=== PATIENT | male | born 1995 | race Two or more races ===

== ENCOUNTER 2023-06-10 17:44 | Inpatient (IN) | payer MEDICAID ==
[~2023-06-10] VITALS: Ht 162.6 cm; Wt 86.5 kg
[~2023-06-10 17:44] MED LIST: LAMO25TA5 PO; QUET200T31 PO; QUET300T91 PO; TRAZ-251 PO
[2023-06-10 19:51] LABS: BASOPHILS # (AUTO) 0.1 X10'3 (0-0.2); BASOPHILS % (AUTO) 0.6 % (0-1); EOSINOPHILS % (AUTO) 0.1 % (0-6); HEMATOCRIT 42.4 % (42.0-52.0); HEMOGLOBIN 14.5 g/dl (14.0-17.9); LYMPHOCYTES # (AUTO) 2.7 X10'3 (1.1-4.8); LYMPHOCYTES % (AUTO) 27.1 % (21-51); MEAN CORPUSCULAR HEMOGLOBIN 31.7 PG (27.0-31.0); MEAN CORPUSCULAR HGB CONC 34.2 g/dL (33.0-36.5); MEAN CORPUSCULAR VOLUME 92.6 FL (78-98); MEAN PLATELET VOLUME 8.7 FL (7.4-10.4); MONOCYTES # (AUTO) 0.6 X10'3 (0-0.9); NEUTROPHILS # (AUTO) 6.7 X10'3 (1.8-7.7); NEUTROPHILS % (AUTO) 66.2 % (42-75); PLATELET COUNT 307 X10'3 (140-440); RED BLOOD COUNT 4.58 X10'6 (4.70-6.10); RED CELL DISTRIBUTION WIDTH 12.9 % (11.5-14.5); WHITE BLOOD COUNT 10.2 X10'3 (4.5-11.0)
[2023-06-10 19:54] LABS: ALANINE AMINOTRANSFERASE 25 U/L (12-78); ALBUMIN/GLOBULIN RATIO 1.3 (1.1-1.5); ALKALINE PHOSPHATASE 75 IU/L (46-116); ANION GAP 9 (8-16); ASPARTATE AMINO TRANSFERASE 39 U/L (10-37); BILIRUBIN,TOTAL 0.5 MG/DL (0.1-1.0); BLOOD UREA NITROGEN 14 MG/DL (7-18); BUN/CREATININE RATIO 14.9 (10.0-20.0); CALCIUM 9.8 MG/DL (8.5-10.1); CHLORIDE 99 MMOL/L (99-107); CREATININE 0.94 MG/DL (0.60-1.10); GLUCOSE 108 MG/DL (70-104); SODIUM 138 MMOL/L (135-145); TOTAL CARBON DIOXIDE 30.1 MMOL/L (24-32); TOTAL PROTEIN 8.9 G/DL (6.4-8.2); eCRCL 118 ML/MIN; eGFR > 90 ML/MIN
[2023-06-10 20:07] LABS: ETHANOL < 10 MG/DL (<10)
[2023-06-10 20:10] LABS: URINE AMPHETAMINE SCREEN NEGATIVE (Neg); URINE BARBITUATE SCREEN NEGATIVE (Neg); URINE BENZODIAZEPINES SCREEN NEGATIVE (Neg); URINE CANNABINOID SCREEN NEGATIVE (Neg); URINE COCAINE SCREEN NEGATIVE (Neg); URINE METHADONE SCREEN NEGATIVE (Neg); URINE OPIATE SCREEN NEGATIVE (Neg); URINE PHENCYCLIDINE SCREEN NEGATIVE (Neg)
[2023-06-10 21:26] LABS: BILIRUBIN,URINE NEGATIVE (Neg); CLARITY,URINE CLEAR (Clear); COLOR,URINE YELLOW (Yellow); GLUCOSE, URINE NEGATIVE (Neg); KETONES,URINE NEGATIVE (Neg); LEUKOCYTE ESTERASE ,URINE NEGATIVE (Neg); NITRITES, URINE NEGATIVE (Neg); OCCULT BLOOD,URINE NEGATIVE (Neg); PROTEIN,URINE NEGATIVE (Neg); UROBILINOGEN,URINE 0.2 E.U/dL (0.2-1.0)
[2023-06-10] MEDS ORDERED: QUET-1 PO ×2 (21:26→21:28)
[2023-06-10] MEDS ORDERED: LAMO25TA72 PO (21:28)
--- NOTE | 2023-06-10 21:30 | NUR ---
Arrived to bed-25 from ED. Patient calm and cooperative. Sad affect noted. Reports Anxiety +SI, +HI, +AH & VH.
[2023-06-10 21:54] LABS: THYROID STIMULATING HORMONE 2.02 ulU/ml (0.34-4.50)
[2023-06-10 22:12] LABS: UA COLLECTION TYPE VOIDED
[2023-06-10] MEDS ORDERED: hydrOXYzine 25 MG tablet PO PRN (22:30)
[2023-06-10] MEDS ORDERED: LORazepam 1 MG tablet PO PRN (22:30)
--- NOTE | 2023-06-10 23:00 | NUR ---
Patient awake and asking for medication for anxiety. Administered Hydroxyzine 25 mg at this time.
[2023-06-10] MEDS: quetiapine 100mg tablet PO SCH (23:40)
[2023-06-10] MEDS ORDERED: LAMO25TA5 PO (23:42)
[2023-06-10] MEDS: lamoTRIgine 25mg tablet PO SCH (23:44)
[2023-06-11] MEDS: traZODone 50mg tablet PO PRN ×2 (00:33→21:06)
--- NOTE | 2023-06-11 01:08 | NUR ---
Patient awake and asking for a sandwich. Administered Ativan for anxiety and Trazodone for sleep 30 minutes ago. Patient clarified with nurse that he had his day time seroquel, not his night time dose. Will administer noc dose of Seroquel now. Will continue to monitor.
[2023-06-11] MEDS: quetiapine 100mg tablet PO SCH ×2 (01:15→21:07)
--- NOTE | 2023-06-11 02:34 | NUR ---
Patient appears to be sleeping comfortably. Noted rise/fall of chest noted. Will continue to monitor.
--- NOTE | 2023-06-11 04:07 | NUR ---
Patient sleeping comfortably since last medication administration given. Respirations even/nonlabored. Rise/fall of chest noted.
--- NOTE | 2023-06-11 05:15 | NUR ---
Patient has been sleeping well since Seroquel administration. Appears to be comfortable. Respirations even/nonlabored. Noted rise/fall of chest. Will continue to monitor.
--- NOTE | 2023-06-11 07:24 | NUR ---
Patient is sleeping in bed. Respirations are even and nonlabored.
--- NOTE | 2023-06-11 07:37 | NUR ---
Patient up to the restroom, then back to bed.
[2023-06-11] MEDS ORDERED: quetiapine 100mg tablet PO SCH (08:00)
--- NOTE | 2023-06-11 08:42 | NUR ---
Patient ate his breakfast and took his medications without incident. Patient said "thank you". Patient going back to sleep.
--- NOTE | 2023-06-11 09:46 | NUR ---
daren sent packet to [facility]
--- NOTE | 2023-06-11 11:01 | NUR ---
Patient evaluated by [facility]. Patient is being placed on a 5150. Patient is sleeping at this time.
--- NOTE | 2023-06-11 12:55 | NUR ---
Patient ate his lunch and went back to sleep. No needs at this time.
--- NOTE | 2023-06-11 15:03 | NUR ---
Patient sleeping. Refused to sign for registration. Patient reports that he is tired.
[2023-06-11] MEDS ORDERED: loperamide 2mg capsule PO PRN (15:40)
[2023-06-11] MEDS ORDERED: mag hydrox/Alum hydrox/simeth 30ml oral suspension PO PRN (15:40)
[2023-06-11] MEDS ORDERED: NICOTINE POLACRILEX 2 MG LOZENGE BC PRN (15:40)
[2023-06-11] MEDS ORDERED: acetaminophen 325mg tablet PO PRN ×2 (15:40)
[2023-06-11] MEDS ORDERED: magnesium hydroxide 30ml (MOM) UD suspension PO PRN (15:40)
--- NOTE | 2023-06-11 15:40 | NUR ---
Patient is discharging to [facility] via W/C with security present. Patient in stable condition.
[2023-06-11 15:47] VITALS: BP 107/64; PULSE 76; RESP 14; TEMP 98; O2SAT 99
--- NOTE | 2023-06-11 16:15 | NUR ---
Admit Note: Patient arrived at [facility] at 1435. Per 5150 patient was making pranoid and delusional statements, having hallucinations, not eating or sleeping, and has voices telling him to kill himself.
[2023-06-11 19:00] VITALS: RESP 16; O2SAT 99
[2023-06-11 20:00] VITALS: BP 97/53; PULSE 92; RESP 16; TEMP 98; O2SAT 99
[2023-06-11] MEDS ORDERED: LAMOTRIGINE PO SCH (21:00)
[2023-06-11] MEDS: lamoTRIgine 25mg tablet PO SCH (21:06)
--- NOTE | 2023-06-12 05:18 | NUR ---
NURSING PROGRESS NOTE: AD Problem: Pt admitted to [place] for [facility] health on 515 for DTS/GD. Per 5150 patient was making paranoid and delusional statements, having hallucinations, not eating or sleeping, and has voices telling him to kill himself. Interventions: Provided 1:1 assessment, therapeutic conversation, active listening, medication administration/education/monitoring, behavior monitoring and intervention as needed; attempted reality orientation, provided distraction, redirection, positive reinforcement, and Q15 min safety checks. Response: Pt received in room. Pt sleeping most of shift. Pt agreeable to sign psychotropic medication consent. Pt stated hes doing bad. Pt prefers to continue interview tomorrow and would like to keep sleeping. Pt stated his LBM was yesterday 06/10/23. He is compliant with all medications. Plan: Patient continues to require medication titration r/t to AH and some paranoid thinking. Pt is unable to safety plan.
--- NOTE | 2023-06-12 06:04 | NUR ---
QUALITY TECH documentation: I have reviewed and agree with all interventions, assessments performed and documented by Elver TRIVEDI.
[2023-06-12 07:00] VITALS: RESP 16; O2SAT 100
[2023-06-12 08:00] VITALS: BP 86/56; PULSE 87; RESP 16; TEMP 97.7; O2SAT 100
[2023-06-12] MEDS: QUETIAPINE 150 MG TAB.SR.24H PO SCH (08:41)
[2023-06-12] MEDS: nicotine 21mg patch - 24 hr TD SCH (08:42)
[2023-06-12 09:00] VITALS: BP 140/80
--- NOTE | 2023-06-12 14:20 | NUR ---
Nursing Progress Note: Problem : Pt admitted to [place] for [facility] health on 5150 for DTS/GD. Per 5150 patient was making paranoid and delusional statements, having hallucinations, not eating or sleeping, and has voices telling him to kill himself. Interventions Introduced self and established rapport, maintained a safe and supportive environment, provided clear and simple instructions, attempted to orient to reality, provided active listening and positive encouragement, and maintained Q 15min safety checks. Response : Received pt. sleeping in bed at the beginning of the shift, he was awoken to attend breakfast in the Group Room, and afterwards retreated back to bed. This ticket writer introduced herself and 1:1 was completed at bedside. Pt. presents as cooperative, fatigued, anxious, guarded, and is isolative. His speech is soft making him difficult to understand at times, and he responds minimally to direct questions only. Pt. is A&O X2, to name and place, he reports the month to be July and is unsure why he is currently here. Pt. reports S/I, however denies any current plan. He endorses A/STOKES and states, "They tell me I'm on different planet." Pt. also reports V/STOKES of "Flashes of light." Pt. stares at this ticket writer with wide eyes during the assessment, and admits to paranoid thoughts that random others want to hut him. This ticket writer provided positive encouragement and reassured pt. of his safety on the unit and he reported contentment. Pt. napped intermittently during the shift, and isolated from others. He removed his Nicotine Patch because he reported it was "Making his stomach hurt." Plan : Pt. requires interruption of current crisis, medication adjustments, and a safe and supportive environment.
[2023-06-12] MEDS ORDERED: quetiapine 100mg tablet PO PRN (15:20)
[2023-06-12 19:00] VITALS: RESP 15; O2SAT 100
[2023-06-12 20:00] VITALS: BP 134/70; PULSE 72; RESP 15; TEMP 97.7; O2SAT 100
[2023-06-12] MEDS: quetiapine 100mg tablet PO SCH (20:35)
[2023-06-12] MEDS: lamoTRIgine 25mg tablet PO SCH (20:35)
[2023-06-12] MEDS: quetiapine 100mg tablet PO PRN (23:39)
--- NOTE | 2023-06-13 05:02 | NUR ---
Nursing Progress Note: Problem : Pt admitted to [place] for [facility]al health on 5150 for DTS/GD. Per 5150 patient was making paranoid and delusional statements, having hallucinations, not eating or sleeping, and has voices telling him to kill himself. Interventions introduced self and established rapport, maintained a safe and supportive environment, provided clear and simple instructions, attempted to orient to reality, provided active listening and positive encouragement, and maintained Q 15min safety checks. Response : Pt received in bed. Pt was intermittently sleeping at beginning of shift. Pt reported heavy audible hallucinations. Pt prefers isolating in room to ease the voices and agitation. Pt offered Seroquel 200mg and medication mildly effective. Pt was offered music therapy and accepted. Pt observed coming out into day room. Pt colored. Pt does not have a plan for food, clothing, senior care. Pt was compliant with all medications. He was able to initiate sleeping but not remain asleep. Pt offered Seroquel as ordered for insomnia. Medication appeared effective. Plan : Pt. requires interruption of current crisis, medication adjustments, and a safe and supportive environment.
[2023-06-13 07:00] VITALS: RESP 12; O2SAT 94
[2023-06-13 08:00] VITALS: BP 90/50; PULSE 60; RESP 12; TEMP 97.4; O2SAT 94
[2023-06-13] MEDS: nicotine 21mg patch - 24 hr TD SCH (08:00)
[2023-06-13] MEDS: QUETIAPINE 150 MG TAB.SR.24H PO SCH (08:25)
[2023-06-13] MEDS: quetiapine 100mg tablet PO PRN ×2 (13:45→22:31)
--- NOTE | 2023-06-13 17:24 | NUR ---
Nursing Progress Note: Problem : Pt admitted to [place] for [facility] health on 5150 for DTS/GD. Per 5150 patient was making paranoid and delusional statements, having hallucinations, not eating or sleeping, and has voices telling him to kill himself. Interventions: Maintained a safe and supportive environment, provided clear and simple instructions, attempted to orient to reality, provided active listening and positive encouragement, provided active listening and positive encouragement, and maintained Q 15min safety checks. Response : Received pt. sleeping in bed at the beginning of the shift, he was awoken to attend breakfast in the Group Room, and afterwards retreated back to bed as is his routine. This contract writer attempted to complete 1:1 at bedside, however pt. presented with increased anxiety and appeared to be paranoid. He covered his face with the sheets, would not make eye contact, or speak to this contract writer. Pt. refused his vital signs and medications, however with education and encouragement provided by this contract writer, later consented. Following lunch, pt. approached this contract writer and initiated conversation. He endorsed anxiety and when questioned further regarding this, stated in an intense and disorganized manner, "My mind is worse and worse. So many things I have to do, it's stressful." Pt. also continues to endorse paranoid thoughts that random others want to hut him. He requested PRN anxiety medication, and PRN Seroquel 100mg was administered with effectiveness. Pt. denies any S/I this shift, but does endorse H/I towards random others outside the hospital. He reports some command A/STOKES. Pt. was again withdrawn during the shift, napping intermittently. Plan : Pt. requires interruption of current crisis, medication adjustments, and a safe and supportive environment.
[2023-06-13 19:00] VITALS: RESP 16; O2SAT 99
[2023-06-13 20:00] VITALS: BP 106/64; PULSE 80; RESP 16; TEMP 98.2; O2SAT 99
[2023-06-13] MEDS ORDERED: quetiapine 100mg tablet PO SCH (21:00)
[2023-06-13] MEDS: lamoTRIgine 25mg tablet PO SCH (21:00)
--- NOTE | 2023-06-14 05:10 | NUR ---
Nursing Progress Note: Problem : Pt admitted to [place] for Behavioral health on 5150 for DTS/GD. Per 5150 patient was making paranoid and delusional statements, having hallucinations, not eating or sleeping, and has voices telling him to kill himself. Interventions introduced self and established rapport, maintained a safe and supportive environment, provided clear and simple instructions, attempted to orient to reality, provided active listening and positive encouragement, and maintained Q 15min safety checks. Response : Pt greeted in hallway. Pt gazes at staff wide eyed. Pt oriented x 4, he was talking about how the worker at the pharmacy in [place] was stalking him prior to him picking up his medications. He confronted the worker and asked if he was following him. Pt reports he left with a bag of his own medications. During his interview with Dr. Martínez, he stated that the [place] pharmacy did not have record of him picking up his medications. He believes that policy writer works for the [place] pharmacy and will not disclose certain information. Records Management Coordinator provided safe and supportive environment. Pt paced hallways and socialized with select peers. He reports heavy internal voices. He states he did not sleep last night. Records Management Coordinator explained during med pass, Seroquel HS dose was adjusted by Provider. HS Seroquel 400mg was ineffective for patient to begin sleeping. Pt accessed additional Seroquel 100mg PO PRN. Medication appeared to be effective. Pt showered during shift. His pants were retrieved from locker and washed. He engaged with policy writer in conversation about his experience in the [employer]. He has done many jobs. He stated he wanted to go to college but believes he is too old. Pt reports his inability to trust many people due to his life experiences. He has trouble at times orienting to reality. He states he gets confused at times when orienting to reality. Plan : Pt. requires interruption of current crisis, medication adjustments, and a safe and supportive environment.
--- NOTE | 2023-06-14 05:34 | NUR ---
TENTERING MACHINE OFF BEARER documentation: I have reviewed and agree with all interventions, assessments performed and documented by Elver TRIVEDI.
[2023-06-14 07:00] VITALS: RESP 12; O2SAT 100
[2023-06-14 08:00] VITALS: BP 135/83; PULSE 84; RESP 12; TEMP 97.8; O2SAT 100
[2023-06-14] MEDS: nicotine 21mg patch - 24 hr TD SCH (13:55)
[2023-06-14] MEDS: quetiapine 100mg tablet PO PRN ×3 (13:55→22:52)
--- NOTE | 2023-06-14 15:13 | NUR ---
Nursing Progress Note: Problem : Pt admitted to [place] for [facility] health on 5150 for DTS/GD. Per 5150 patient was making paranoid and delusional statements, having hallucinations, not eating or sleeping, and has voices telling him to kill himself. Interventions: Maintained a safe and supportive environment, provided clear and simple instructions, attempted to orient to reality, provided active listening and positive encouragement, encouraged participation on the unit, and maintained Q 15min safety checks. Response : Received pt. sleeping in bed at the beginning of the shift, he was awoken to attend breakfast in the Group Room, and afterwards retreated back to bed as is his routine. Pt. again refused vital signs and continued to sleep until lunch time. Following lunch, pt. was observed to be pacing the hallway and approached this health underwriter reporting anxiety requesting PRN Seroquel, this medication was administered with effectiveness. Pt. allowed this health underwriter to obtain his vital signs and a mental health assessment was completed. He remains guarded with conversation, however is making better eye contact this shift. Pt. denies any S/I or H/I. He endorses ongoing A/STOKES and when questioned further regarding these stated, "Sometimes they tell me to do bad things. I don't want to talk about it." Pt. denies any V/H, however reports ongoing paranoid delusional thoughts that random others want to hurt him. He stated, "When they didn't take my vitals this morning I thought someone was going to come busting through the window!" Pt. was provided positive encouragement and reassured of his safety on the unit and he reported understanding. Pt. remained withdrawn from others throughout the shift, but was observed to be more present on the unit. Plan : Pt. requires medication adjustments and a safe and supportive environment.
[2023-06-14 19:00] VITALS: BP 132/79; PULSE 97; RESP 18; TEMP 97.4; O2SAT 100
[2023-06-14] MEDS: lamoTRIgine 25mg tablet PO SCH (21:08)
[2023-06-14] MEDS: quetiapine 100mg tablet PO SCH (21:09)
--- NOTE | 2023-06-15 00:04 | NUR ---
Nursing Progress Note: Problem: Pt admitted to [place] for Behavioral health on 5150 for DTS/GD. Per 5150 patient was making paranoid and delusional statements, having hallucinations, not eating or sleeping, and has voices telling him to kill himself. Interventions: Maintained a safe and supportive environment, provided clear and simple instructions, attempted to orient to reality, provided active listening and positive encouragement, encouraged participation on the unit, and maintained Q 15min safety checks. Response: Patient is pleasant and cooperative with care; compliant with medication. Nicotine patch removed. PRN Quetiapine provided for sleep. Patient endorsed constant CAH encouraging him to harm others. Patient is social and active on the unit. He participated in HS snack and showered prior to bed; reported difficulty getting to sleep. Plan : Pt. requires medication adjustments and a safe and supportive environment.
[2023-06-15 07:00] VITALS: RESP 16
[2023-06-15] MEDS: nicotine 21mg patch - 24 hr TD SCH (08:40)
[2023-06-15] MEDS: acetaminophen 325mg tablet PO PRN (17:07)
--- NOTE | 2023-06-15 17:36 | NUR ---
Nursing Progress Note: Problem : Pt admitted to [place] for [facility] health on 5150 for DTS/GD. Per 5150 patient was making paranoid and delusional statements, having hallucinations, not eating or sleeping, and has voices telling him to kill himself. Interventions: Maintained a safe and supportive environment, provided clear and simple instructions, attempted to orient to reality, provided active listening and positive encouragement, encouraged participation on the unit, and maintained Q 15min safety checks. Response: Patient sleeping in bed at change of shift. Patient is sleepy, and does not want to talk this morning. Patient went in and ate his breakfast, and went back bed for a nap. Patient awoke requesting water. Water was given, and patient reported that he is just trying to deal with the voices in his head. Patient does not like talking about his mental illness. Patient is guarded and paranoid in his conversation. Patient keeps his distance from peers and staff. Patient does not have a safe discharge plan at this time. Patient was observed playing cards x 2 with his roommate. Plan : Pt. requires medication adjustments and a safe and supportive environment.
--- NOTE | 2023-06-15 17:50 | NUR ---
DISCHARGE NOTE: Patient denies SI. Patient had a bad night last night due to an allergy, but has had a pretty good day. Patient left with all his belongings. His cousin picked him up and patient is discharged in stable condition.
[2023-06-15 19:14] VITALS: BP 118/80; PULSE 81; RESP 16; TEMP 96.6; O2SAT 98
[2023-06-15] MEDS: lamoTRIgine 25mg tablet PO SCH (20:31)
[2023-06-15] MEDS: quetiapine 100mg tablet PO SCH (20:31)
[2023-06-15] MEDS: diphenhydrAMINE 25mg capsule PO PRN (22:30)
--- NOTE | 2023-06-16 01:10 | NUR ---
Nursing Progress Note: Problem: Pt admitted to [place] for [facility] health on 5150 for DTS/GD. Per 5150 patient was making paranoid and delusional statements, having hallucinations, not eating or sleeping, and has voices telling him to kill himself. Interventions: Maintained a safe and supportive environment, provided clear and simple instructions, attempted to orient to reality, provided active listening and positive encouragement, encouraged participation on the unit, and maintained Q 15min safety checks. Response: Patient is pleasant and cooperative with care; compliant with medication. Nicotine patch removed. Patient c/o congestion and requested Benadryl; Duarte PAREDES contacted and received N/O for Benadryl PRN TID for allergies. Patient continues to report constant CAH and feelings of harming other; however, patient is social and interacting without issue with peers. Patient participated in HS snack and showered prior to bed; observed sleeping and does not appear to be having difficulty. Plan : Pt. requires medication adjustments and a safe and supportive environment.
--- NOTE | 2023-06-16 02:43 | NUR ---
AGER TENDER documentation: I have reviewed all interventions, assessments performed and documented by Megha TRIVEDI.
--- NOTE | 2023-06-16 06:36 | NUR ---
Please disregard discharge note, wrong patient.
[2023-06-16 07:00] VITALS: BP 97/61; PULSE 73; RESP 16; TEMP 97.9; O2SAT 100
[2023-06-16] MEDS: nicotine 21mg patch - 24 hr TD SCH (08:34)
--- NOTE | 2023-06-16 09:28 | NUR ---
Initial: Pt admit for gravely disabled and DTO. Currently on a regular diet and eating well, documented with 100% PO intake of all meals meeting estimated nutrient needs. Noted pt getting double protein with meals as of 06/12 per diet order. LBM 06/13 with no GI symptoms per EMR. Pt with PRN MoM available though not documented to be given. D/w dietary to send prunes and prune juice with next meal to assist with a BM. Will continue to follow and monitor need for further nutrition intervention. Recommendations: 1) Continue regular diet; double protein with meals per diet order 2) Bowel care PRN; monitor need for routine bowel care 3) Weekly scaled weights Addendum: 06/16/23 at [address] Amended: Links added.
--- NOTE | 2023-06-16 15:22 | NUR ---
Nursing Progress Note: Problem : Pt admitted to [place] for Behavioral health on 5150 for DTS/GD. Per 5150 patient was making paranoid and delusional statements, having hallucinations, not eating or sleeping, and has voices telling him to kill himself. Interventions: Maintained a safe and supportive environment, provided clear and simple instructions, attempted to orient to reality, provided active listening and positive encouragement, encouraged participation on the unit, and maintained Q 15min safety checks. Response: Patient sleeping in bed at change of shift. Patient awakens for breakfast, patient eats with a peer. While I was scanning the medications for the peer he was sitting with, patient stated that the light was going into his eyes, I started scanning below the desk level so that it didnt bother patient. Went into patients room to give him his Nicotine patch, and patient started stating no, I dont want you as my nurse. RN then requested that Maicol RN go in and find out what is bothering patient. Patient told him some minor complaints that he had against RN. Patient would not allow assessments or 1:1. Patient did join in on group this morning with Kim. Patient was up and social on the unit. Plan : Pt. requires medication adjustments and a safe and supportive environment.
[2023-06-16] MEDS: acetaminophen 325mg tablet PO PRN ×2 (15:28→21:25)
[2023-06-16 19:28] VITALS: BP 119/79; PULSE 105; RESP 18; TEMP 98.5; O2SAT 100
[2023-06-16] MEDS: quetiapine 100mg tablet PO SCH (20:35)
[2023-06-16] MEDS: lamoTRIgine 25mg tablet PO SCH (20:35)
[2023-06-16] MEDS: diphenhydrAMINE 25mg capsule PO PRN (21:47)
[2023-06-16] MEDS: quetiapine 100mg tablet PO PRN (21:47)
--- NOTE | 2023-06-17 04:32 | NUR ---
Nursing Progress Note: Problem: Pt admitted to [place] for [facility] health on 5150 for DTS/GD. Per 5150 patient was making paranoid and delusional statements, having hallucinations, not eating or sleeping, and has voices telling him to kill himself. Interventions: Maintained a safe and supportive environment, provided clear and simple instructions, attempted to orient to reality, provided active listening and positive encouragement, encouraged participation on the unit, and maintained Q 15min safety checks. Response: Patient is pleasant and cooperative with care; compliant with medication. PRN Quetiapine provided for sleep and Benadryl provided for allergy Sx. Patient continues to endorse AH and HI; further explained the "voices are starting to quiet down like they're far away." He was social with peers and talked on the phone. Participated in HS snack and showered prior to bed; observed sleeping and does not appear to be having difficulty. Plan : Pt. requires medication adjustments and a safe and supportive environment.
--- NOTE | 2023-06-17 04:51 | NUR ---
VARNISH MAKER documentation: I have reviewed all interventions, assessments performed and documented by Megha TRIVEDI.
[2023-06-17 07:53] VITALS: RESP 18; O2SAT 100
[2023-06-17 08:00] VITALS: RESP 16
[2023-06-17] MEDS: nicotine 21mg patch - 24 hr TD SCH (09:15)
--- NOTE | 2023-06-17 17:47 | NUR ---
Nursing Progress Note: Problem: Pt admitted to [place] for Behavioral health on 5150 for GD/DTO from [facility] at 1135. Pt was unable to provide an adequate plan for food, clothing and assisted. He has experienced auditory hallucinations that tell him to hurt other people. Pt has history of schizophrenia. Interventions: Provided 1:1 assessment, therapeutic conversation, active listening, medication administration/education/monitoring, behavior monitoring and intervention as needed; attempted reality orientation, provided distraction, redirection, positive reinforcement, and Q15 min safety checks. Response: Patient observed sleeping at shift change. He declined breakfast. I didnt sleep well, so Im sleeping in. Patient is compliant with medications. He got up at ~1000 and reported that he feels pretty good today. His appearance is calm and he doesnt appear to be paranoid at this time. Once, he was up, he stayed up and has been socializing with his peers and playing cards with them. When asked if he has any discharge plans yet, he gets guarded and doesnt want to talk anymore. Patient is spending less time in his room. He joined in [facility] group this morning, and has stayed up all day. Patient denies all MH symptoms and hasnt made any delusional statements or shown outward signs of psychosis. Plan: Patient needs a safe environment where his medications will be titrated to effect.
[2023-06-17] MEDS: QUEtiapine 25mg tablet PO SCH (18:05)
[2023-06-17] MEDS: acetaminophen 325mg tablet PO PRN (19:02)
[2023-06-17 20:00] VITALS: BP 135/88; PULSE 83; RESP 16; TEMP 98.6; O2SAT 97
[2023-06-17] MEDS: lamoTRIgine 25mg tablet PO SCH ×3 (20:32→21:00)
[2023-06-17] MEDS: quetiapine 100mg tablet PO SCH (20:34)
[2023-06-17] MEDS ORDERED: clonazePAM 0.5mg tablet PO SCH (21:00)
--- NOTE | 2023-06-18 04:25 | NUR ---
Nursing Progress Note: Lexa Problem: Pt admitted to [place] for Behavioral health on 5150 for GD/DTO from [facility] at 1135. Pt was unable to provide an adequate plan for food, clothing and care home. He has experienced auditory hallucinations that tell him to hurt other people. Pt has history of schizophrenia. Interventions: Provided 1:1 assessment, therapeutic conversation, active listening, medication administration/education/monitoring, behavior monitoring and intervention as needed; attempted reality orientation, provided distraction, redirection, positive reinforcement, and Q15 min safety checks. Response: upon shift patient seen in hallway walking and socializing with peers and staff. During 1:1, patient admitted to hearing voices, all different voices. Voices are telling him to hurt others and to hurt self with a plan. Patient also admits to having hallucinations. Patient c/o back pain sitting at a 5 on a scale from 1-10. Patient requested Tylenol to manage that. Patient received shower this shift. Patient states he hosted bingo today and seemed very proud of that. Patient plans on going to HS snack. Patients last bowel movement 06/16. Patient currently in bed with eyes closed. No obvious signs of distress to note. Plan: Patient needs a safe environment where his medications will be titrated to effect.
--- NOTE | 2023-06-18 04:28 | NUR ---
Nursing Progress Note: Lexa Problem: Pt admitted to [place] for [facility] health on 5150 for GD/DTO from [facility] at 1135. Pt was unable to provide an adequate plan for food, clothing and fpc. He has experienced auditory hallucinations that tell him to hurt other people. Pt has history of schizophrenia. Interventions: Provided 1:1 assessment, therapeutic conversation, active listening, medication administration/education/monitoring, behavior monitoring and intervention as needed; attempted reality orientation, provided distraction, redirection, positive reinforcement, and Q15 min safety checks. Response: upon shift patient seen in hallway walking and socializing with peers and staff. During 1:1, patient admitted to hearing voices, all different voices. Voices are telling him to hurt others and to hurt self with a plan. Patient also admits to having hallucinations. Patient c/o back pain sitting at a 5 on a scale from 1-10. Patient requested Tylenol to manage that. Patient received shower this shift. Patient states he hosted bingo today and seemed very proud of that. Patient plans on going to HS snack. Patients last bowel movement 06/16. Patient currently in bed with eyes closed. No obvious signs of distress to note. Plan: Patient needs a safe environment where his medications will be titrated to effect.
[2023-06-18 07:22] VITALS: RESP 18; O2SAT 100
[2023-06-18 08:00] VITALS: BP 88/59; PULSE 81; RESP 14; TEMP 97.8; O2SAT 100
[2023-06-18] MEDS: QUEtiapine 25mg tablet PO SCH ×2 (08:42→17:14)
[2023-06-18] MEDS: nicotine 21mg patch - 24 hr TD SCH (08:42)
[2023-06-18] MEDS: acetaminophen 325mg tablet PO PRN (13:29)
--- NOTE | 2023-06-18 17:16 | NUR ---
NURSING PROGRESS NOTE Problem: Pt admitted to [place] for Behavioral health on 5150 for GD/DTO from [facility] at 1135. Pt was unable to provide an adequate plan for food, clothing and nursing home. He has experienced auditory hallucinations that tell him to hurt other people. Pt has history of schizophrenia. Interventions: Provided 1:1 assessment, therapeutic conversation, active listening, medication administration/education/monitoring, behavior monitoring and intervention as needed; attempted reality orientation, provided distraction, redirection, positive reinforcement, and Q15 min safety checks. Response: Received patient at 1230. Pt was standing in hallway talking to another peer. Pt has been calm/cooperative. Pt was compliant with care and medication. Pt has some paranoid characteristics, pt told short story writer the pharmacist in [place] was stalking him. Pt can be aware of his surroundings. Pt is active and visible in the milieu. Pt endorses AH "they are negative" causing him to have passive SI. Pt doesn't appear to be responding to internal stimuli. Pt denies all other psychotic symptoms. Pt's water intake needs to be visually monitored. He had at least five pitchers of water before 1500. Reported to CRN and will endorse to next shift. Explosives Handler talked to patient about streching time in between each pitcher. Plan: Patient needs a safe environment where his medications will be titrated to effect.
[2023-06-18 19:15] VITALS: BP 130/87; PULSE 89; RESP 16; TEMP 98.2; O2SAT 100
[2023-06-18] MEDS: lamoTRIgine 25mg tablet PO SCH (20:37)
[2023-06-18] MEDS: clonazePAM 1mg tablet PO SCH (20:37)
[2023-06-18] MEDS: quetiapine 100mg tablet PO SCH (20:37)
[2023-06-18] MEDS: diphenhydrAMINE 25mg capsule PO PRN (22:24)
--- NOTE | 2023-06-19 01:27 | NUR ---
NURSING PROGRESS NOTE Lexa Problem: Pt admitted to [place] for Behavioral health on 5150 for GD/DTO from [facility] at 1135. Pt was unable to provide an adequate plan for food, clothing and halfway. He has experienced auditory hallucinations that tell him to hurt other people. Pt has history of schizophrenia. Interventions: Provided 1:1 assessment, therapeutic conversation, active listening, medication administration/education/monitoring, behavior monitoring and intervention as needed; attempted reality orientation, provided distraction, redirection, positive reinforcement, and Q15 min safety checks. Response: Received in his room listening to headphones. Pt cooperative with vitals. When asked MH questions the pt would not answer this RN and would pretend he didnt hear anything. He was up for HS snacks and took HS medications including PRN Benadryl for allergy symptoms. He took a shower and was social with peers in dining for a while. Pt is currently sleeping, will continue to monitor. Plan: Patient needs a safe environment where his medications will be titrated to effect.
[2023-06-19 07:00] VITALS: RESP 16; O2SAT 99
[2023-06-19 08:00] VITALS: BP 91/48; PULSE 67; RESP 16; TEMP 97.8; O2SAT 99
[2023-06-19] MEDS: nicotine 21mg patch - 24 hr TD SCH (08:13)
[2023-06-19] MEDS: QUEtiapine 25mg tablet PO SCH ×2 (08:13→17:59)
[2023-06-19 09:50] LABS: HIV ANTIBODY 1&2 RAPID NON-REACTIVE (Neg)
--- NOTE | 2023-06-19 14:27 | NUR ---
NURSING PROGRESS NOTE Problem: Pt admitted to [place] for Behavioral health on 5150 for GD/DTO from [facility] at 1135. Pt was unable to provide an adequate plan for food, clothing and longterm. He has experienced auditory hallucinations that tell him to hurt other people. Pt has history of schizophrenia. Interventions: Provided 1:1 assessment, therapeutic conversation, active listening, medication administration/education/monitoring, behavior monitoring and intervention as needed; attempted reality orientation, provided distraction, redirection, positive reinforcement, and Q15 min safety checks. Response: Patient was asleep at change of shift and up for breakast. Patient denies SI/HI ideation. Patient denies A/V hallucinations. Patient has been smiling and interactive today. Patient wanted to know where he would get money for donating his blood. Patient called and got information on how to do that. Patient has been up and walking the halls. Patient has been chatting with staff and peers. Patient states he is almost ready to leave, but states not quite yet. Plan: Patient needs a safe environment where his medications will be titrated to effect.
[2023-06-19] MEDS: acetaminophen 325mg tablet PO PRN (19:28)
[2023-06-19] MEDS: clonazePAM 1mg tablet PO SCH (19:47)
[2023-06-19] MEDS: quetiapine 100mg tablet PO SCH (19:48)
[2023-06-19] MEDS: lamoTRIgine 25mg tablet PO SCH ×2 (19:48→21:00)
[2023-06-19 20:00] VITALS: BP 122/73; PULSE 93; RESP 16; TEMP 98.2; O2SAT 97
--- NOTE | 2023-06-19 22:20 | NUR ---
NURSING PROGRESS NOTE Lexa Problem: Pt admitted to [place] for Behavioral health on 5150 for GD/DTO from [facility] at 1135. Pt was unable to provide an adequate plan for food, clothing and correction. He has experienced auditory hallucinations that tell him to hurt other people. Pt has history of schizophrenia. Interventions: Provided 1:1 assessment, therapeutic conversation, active listening, medication administration/education/monitoring, behavior monitoring and intervention as needed; attempted reality orientation, provided distraction, redirection, positive reinforcement, and Q15 min safety checks. Response: Patient was in his room with headphones on. Later pt was observed in the hallway pacing, when asked about his voices the pt stated they are the same. The patient made no eye contact with this nurse and did not want to answer any other questions. Patient is paranoid. Went to pts room to give HS medications and the pt refused and wanted them at a later time. This nurse brought Ac PCT to the room and again the pt refused. The pt then said fine I will take them so I dont hit someone. The patient acted as thought he was going to lunge at this nurse. Pt was re-directed and told we do not tolerate this behavior on the unit. The pt has been seen resting on his bed. Continue to monitor. Plan: Patient needs a safe environment where his medications will be titrated to effect.
[2023-06-20 07:00] VITALS: RESP 18; O2SAT 100
[2023-06-20 08:00] VITALS: BP 117/65; PULSE 77; RESP 18; TEMP 97.9; O2SAT 100
[2023-06-20] MEDS: QUEtiapine 25mg tablet PO SCH ×2 (08:09→16:45)
[2023-06-20] MEDS: nicotine 21mg patch - 24 hr TD SCH (08:09)
--- NOTE | 2023-06-20 15:42 | NUR ---
Nursing Progress Note: Problem : Pt admitted to [place] for Behavioral health on 5150 for DTS/GD. Per 5150 patient was making paranoid and delusional statements, having hallucinations, not eating or sleeping, and has voices telling him to kill himself. Interventions: Maintained a safe and supportive environment, provided clear and simple instructions, attempted to orient to reality, provided active listening and positive encouragement, provided active listening and positive encouragement, and maintained Q 15min safety checks. Response : Pt. received awake and took his medications without hesitation. He denies SI, HI, and endorses AH, VH stating the gsskl2d are still there, and I see flashes of light Pt. has good eye contact, cooperative, and socializes with staff and cohorts. He ate all meals in the community room, and organized the book area used by all pt. He removed his nicotine patch and requested a few phone numbers of local restaurants in an effort to look for work. Pt. has good hygiene, long facial hair, and wears street clothes. PRN: None Plan : Pt. requires interruption of current crisis, medication adjustments, and a safe and supportive environment.
[2023-06-20 19:00] VITALS: RESP 18; O2SAT 100
[2023-06-20] MEDS: acetaminophen 325mg tablet PO PRN (19:35)
[2023-06-20 20:00] VITALS: BP 118/79; PULSE 78; RESP 18; TEMP 98.2; O2SAT 100
[2023-06-20] MEDS: clonazePAM 1mg tablet PO SCH (20:52)
[2023-06-20] MEDS: quetiapine 100mg tablet PO SCH (20:53)
[2023-06-20] MEDS: lamoTRIgine 25mg tablet PO SCH (20:59)
--- NOTE | 2023-06-21 04:17 | NUR ---
Nursing Progress Note: Problem: Pt admitted to [place] for [facility] health on 5150 for DTS/GD. Per 5150 patient was making paranoid and delusional statements, having hallucinations, not eating or sleeping, and has voices telling him to kill himself. Interventions: Maintained a safe and supportive environment, provided clear and simple instructions, attempted to orient to reality, provided active listening and positive encouragement, provided active listening and positive encouragement, and maintained Q 15min safety checks. Response: Patient is in the day room at start of shift. Pt is exercising on the bike. Pt is calm and cooperative. Pt endorsed AH but feels the medication is helping. Pt denies SI/HI/VH. Pt is medication compliant, visible on the unit, took a shower and interacts with staff and peers. Pt stated, Im good and gave me the thumbs up. Pt c/o of lower back pain and was given Tylenol 650mg for pain 5/10. Pt noted some relief and pain level decreased to 3/10. Monitor for safety. Plan: Pt. requires interruption of current crisis, medication adjustments, and a safe and supportive environment.
[2023-06-21 07:00] VITALS: RESP 16; O2SAT 100
[2023-06-21 07:30] VITALS: BP 96/50; PULSE 84; RESP 16; TEMP 98.5; O2SAT 100
[2023-06-21] MEDS: nicotine 21mg patch - 24 hr TD SCH (08:41)
[2023-06-21] MEDS: acetaminophen 325mg tablet PO PRN (08:45)
[2023-06-21] MEDS: QUEtiapine 25mg tablet PO SCH ×2 (08:45→16:20)
[2023-06-21] MEDS: diphenhydrAMINE 25mg capsule PO PRN (13:12)
--- NOTE | 2023-06-21 15:06 | NUR ---
DISCHARGE PLANNING Lexa reported he has been in contact with [facility] regarding temporary housing upon discharge. Left message for Felecia Rubi (ph# [phone]) requesting a call back. Spoke to Lexa's window caser, Iftikhar (ph# [phone]) and he reported he is waiting for Felecia to respond to his email regarding whether or not Lexa can stay at [facility] (temporary housing). Advocated for Lexa and informed him that he is doing better, less paranoid, and medication compliant. Will check in with Iftikhar again tomorrow. MARC Louie
--- NOTE | 2023-06-21 16:26 | NUR ---
Nursing Progress Note: Lexa Problem : Pt admitted to [place] for Behavioral health on 5150 for DTS/GD. Per 5150 patient was making paranoid and delusional statements, having hallucinations, not eating or sleeping, and has voices telling him to kill himself. Pt. currently VOL. Interventions: Maintained a safe and supportive environment, provided clear and simple instructions, attempted to orient to reality, provided active listening and positive encouragement, provided active listening and positive encouragement, and maintained Q 15min safety checks. Response : Pt. received asleep and awoke to take his medications without hesitation. Pt. denies SI,HI, VH, he endorses reporting I always hear voices Pt. reports he has spoke to [facility] to line things up Pt. presents with good eye contact, guarded, and quiet. Pt. reported [facility] and received Tylenol PRN with good results. He ate all meals in the community room with cohorts, and was observed socializing with staff and others. He requested PRN Benadryl for "allergies" med given with good results.Pt. attended group today. Pt. has good hygiene, has a reveles, and wears street clothes. PRN: Tylenol, Benadryl Plan : Pt. requires interruption of current crisis, medication adjustments, and a safe and supportive environment.
--- NOTE | 2023-06-21 17:50 | NUR ---
ENVIRONMENTAL HEALTH OFFICER documentation: I have reviewed all interventions and assessments performed and documented by SHIKHA Santos.
[2023-06-21 19:00] VITALS: RESP 18; O2SAT 97
[2023-06-21 20:00] VITALS: BP 125/85; PULSE 67; RESP 18; TEMP 98.6; O2SAT 97
[2023-06-21] MEDS: quetiapine 100mg tablet PO SCH (20:27)
[2023-06-21] MEDS: clonazePAM 1mg tablet PO SCH (20:27)
[2023-06-21] MEDS: lamoTRIgine 25mg tablet PO SCH (20:42)
--- NOTE | 2023-06-22 05:04 | NUR ---
Nursing Progress Note: Problem: Pt admitted to [place] for Behavioral health on 5149 for DTS/GD. Per 0 patient was making paranoid and delusional statements, having hallucinations, not eating or sleeping, and has voices telling him to kill himself. Interventions: Maintained a safe and supportive environment, provided clear and simple instructions, attempted to orient to reality, provided active listening and positive encouragement, provided active listening and positive encouragement, and maintained Q 15min safety checks. Response: Patient is in his room listening to music through the headphones. They help distract him from the voices that are always there. Pt is happy and smiling. Dancing in the hallways at times. Pt is cooperative with medication pass. Pt denies SI/HI/VH. Pt interacts well with staff and peers. Pt wants to discharge back to [facility]. Monitor for safety. Plan: Pt. requires interruption of current crisis, medication adjustments, and a safe and supportive environment. Addendum: 06/22/23 at 0531 by Ester Ying RN Pt has refused his night dose of Lamictal x3 nights.
[2023-06-22 07:00] VITALS: RESP 16; O2SAT 97
[2023-06-22 07:28] VITALS: BP 93/57; PULSE 75; RESP 12; TEMP 97.5; O2SAT 97
[2023-06-22] MEDS: QUEtiapine 25mg tablet PO SCH ×2 (07:52→17:00)
[2023-06-22] MEDS: nicotine 21mg patch - 24 hr TD SCH (07:53)
--- NOTE | 2023-06-22 13:50 | NUR ---
DISCHARGE PLANNING Spoke to Felecia with [facility] (ph# [phone]) who reported Lexa can go into [facility] on Tuesday06/27/23. She reported she will arrange for transport for Tuesday and will schedule follow up. Planned for writer editor to check in with her again on Tuesday to confirm discharge plan. MARC Louie
--- NOTE | 2023-06-22 16:24 | NUR ---
Nursing Progress Note: Lexa Problem : Pt admitted to [place] for Behavioral health on 5150 for DTS/GD. Per 5150 patient was making paranoid and delusional statements, having hallucinations, not eating or sleeping, and has voices telling him to kill himself. Pt. currently VOL. Interventions: Maintained a safe and supportive environment, provided clear and simple instructions, attempted to orient to reality, provided active listening and positive encouragement, provided active listening and positive encouragement, and maintained Q 15min safety checks. Response :Pt. received asleep and awoke to take his medications without hesitation. Pt. denies SI, HI, VH and endorses AH, his DC plan is to return to [place]. Pt. presents with good eye contact, cooperative, and engages this continuity writer in conversation. Pt. spent most of the morning out in TV room or in the jorgensen socializing with cohorts. He ate all meals in the community room with others. Pt. has good hygiene, groomed, and is wearing street clothes. No changes observed today PRN: None Plan : Pt. requires interruption of current crisis, medication adjustments, and a safe and supportive environment.
[2023-06-22 19:00] VITALS: BP 122/78; PULSE 108; RESP 16; TEMP 98.6; O2SAT 99
[2023-06-22] MEDS: acetaminophen 325mg tablet PO PRN (20:09)
[2023-06-22] MEDS: clonazePAM 1mg tablet PO SCH (20:09)
[2023-06-22] MEDS: quetiapine 100mg tablet PO SCH (20:10)
--- NOTE | 2023-06-23 03:53 | NUR ---
RN PROGRESS NOTE: LEGAL HOLD: Voluntary PROBLEM: Admitted for making delusional statements, not eating or sleeping, and hearing voices telling him to kill himself. Hx: Schizophrenia, paranoia. INTERVENTIONS: Maintained a safe and supportive environment, provided clear and simple instructions, attempted to orient to reality, provided active listening and positive encouragement, provided active listening and positive encouragement, and maintained Q 15min safety checks. RESPONSE: Client stated he was exercising in his room then said, quietly, "Don't tell anyone." He stated "I exercise everyday, all the time." Reported 5/10 back pain and was given 650 mg Tylenol Tab PO. Reported that his mood has improved. Had a snack, showered, and changed into clean scrubs. Mood is stable at this time. PLAN: Pt. requires interruption of current crisis, medication adjustments, and a safe and supportive environment.
[2023-06-23 07:00] VITALS: RESP 16; O2SAT 97
[2023-06-23 07:17] VITALS: BP 108/66; PULSE 84; RESP 16; TEMP 98; O2SAT 99
[2023-06-23] MEDS: QUEtiapine 25mg tablet PO SCH ×2 (07:32→18:00)
[2023-06-23] MEDS: nicotine 21mg patch - 24 hr TD SCH (07:34)
--- NOTE | 2023-06-23 13:06 | NUR ---
DISCHARGE PLAN-Tue06/27/23 Lexa has been accepted at [facility] for Tue06/27/23. Transport is picking him up at 9 AM. He has follow up scheduled with [facility] psychiatrist for 06/29/23. He will meet with his mental health human services case manager and food beverage manager upon return to [facility]. MARC Louie
[2023-06-23] MEDS ORDERED: DIPH-423 PO (14:24)
[2023-06-23] MEDS ORDERED: CLON1TAB12 PO (14:24)
[2023-06-23] MEDS ORDERED: NICO-631 TD (14:27)
[2023-06-23] MEDS ORDERED: NICO-687 TD (14:27)
[2023-06-23] MEDS ORDERED: QUET300T20 PO (14:27)
[2023-06-23] MEDS ORDERED: QUET100T34 PO (14:27)
--- NOTE | 2023-06-23 17:50 | NUR ---
Nursing Progress Note: Problem : Pt admitted to [place] for [facility] health on 5149 for DTS/GD. Per 0 patient was making paranoid and delusional statements, having hallucinations, not eating or sleeping, and has voices telling him to kill himself. Pt. currently VOL. Interventions: Maintained a safe and supportive environment, provided clear and simple instructions, attempted to orient to reality, provided active listening and positive encouragement, provided active listening and positive encouragement, and maintained Q 15min safety checks. Response: Patient was awake and up at shift change. He ate breakfast with his peers and was compliant with medications. Patient had been isolating to his room, but he spends most of the day out being friendly and socializing with his peers. He has good eye contact, is cooperative, and most important, he is beginning to share what he is thinking and feeling. Patient has a good appetite and shows up for meals and snacks. He keeps himself clean and well-groomed. Patient denies all MH symptoms except for AH, which he reports is much better than at admit. Patient will discharge back to [facility] on Tuesday. Plan : Pt. requires interruption of current crisis, medication adjustments, and a safe and supportive environment.
[2023-06-23] MEDS: acetaminophen 325mg tablet PO PRN (18:56)
[2023-06-23 19:30] VITALS: BP 130/80; PULSE 82; RESP 16; TEMP 98.5; O2SAT 100
[2023-06-23] MEDS: quetiapine 100mg tablet PO SCH (20:49)
[2023-06-23] MEDS: clonazePAM 1mg tablet PO SCH (20:49)
[2023-06-23] MEDS: diphenhydrAMINE 25mg capsule PO PRN (20:54)
--- NOTE | 2023-06-23 22:44 | NUR ---
Nursing Progress Note: Lexa Problem : Pt admitted to [place] for Behavioral health on 5150 for DTS/GD. Per 5150 patient was making paranoid and delusional statements, having hallucinations, not eating or sleeping, and has voices telling him to kill himself. Pt. currently VOL. Interventions: Maintained a safe and supportive environment, provided clear and simple instructions, attempted to orient to reality, provided active listening and positive encouragement, provided active listening and positive encouragement, and maintained Q 15min safety checks. Response: Patient was observed in his room with headphones on. He waves at this RN and states he is doing well. He is observed dancing in the hallway and is cooperative with care. He attended snacks and took all HS medications including PRN Benadryl for allergies. Currently sleeping, will continue to monitor. Plan : Pt. requires interruption of current crisis, medication adjustments, and a safe and supportive environment.
[2023-06-24 07:00] VITALS: RESP 16; O2SAT 97
[2023-06-24 07:22] VITALS: BP 96/59; PULSE 80; RESP 12; TEMP 97.9; O2SAT 99
[2023-06-24] MEDS: QUEtiapine 25mg tablet PO SCH (07:38)
[2023-06-24] MEDS: nicotine 21mg patch - 24 hr TD SCH (07:38)
--- NOTE | 2023-06-24 17:38 | NUR ---
Nursing Progress Note: Problem : Pt admitted to [place] for Behavioral health on 515 for DTS/GD. Per 5150 patient was making paranoid and delusional statements, having hallucinations, not eating or sleeping, and has voices telling him to kill himself. Pt. currently VOL. Interventions: Maintained a safe and supportive environment, provided clear and simple instructions, attempted to orient to reality, provided active listening and positive encouragement, provided active listening and positive encouragement, and maintained Q 15min safety checks. Response: Patient slept until breakfast, but came to the community room and ate among his peers. Hes compliant with medications, then proceeds out into the jorgensen. Patient is not isolating much anymore. He is friendly with staff and cohorts now. Patient is still experiencing difficulty opening up about his inner demons, but it feels like hes trying, versus prior admits to [facility]. He eats well and shows up for snack times. Out of his room, he can be observed dancing to headphones, socializing with his peers or watching TV. Patient continues to report AH, but says they are much better. When asked, he cant or wont quantify what is better. His discharge plan is complete and he will DC back to [facility] on , where he has services set up for him. Plan : Patient appears to be at his baseline stability and will be discharging back to [facility] Jun. .
[2023-06-24 19:16] VITALS: BP 135/80; PULSE 81; RESP 14; TEMP 98.6; O2SAT 99
[2023-06-24] MEDS: quetiapine 100mg tablet PO SCH (20:54)
[2023-06-24] MEDS: clonazePAM 1mg tablet PO SCH (20:54)
--- NOTE | 2023-06-24 23:17 | NUR ---
Nursing Progress Note: Lexa Problem : Pt admitted to [place] for Behavioral health on 5150 for DTS/GD. Per 5150 patient was making paranoid and delusional statements, having hallucinations, not eating or sleeping, and has voices telling him to kill himself. Pt. currently VOL. Interventions: Maintained a safe and supportive environment, provided clear and simple instructions, attempted to orient to reality, provided active listening and positive encouragement, provided active listening and positive encouragement, and maintained Q 15min safety checks. Response: Patient pacing the unit with headphones. Pt came up to this RN and asked if he had any medications due. When asked what he wanted it for he shrugged his shoulders. Pt cooperative with care, participated in snacks and took all HS medications. Denies SI but states he has voices that are not bad. Pt is currently sleeping, will continue to monitor. Plan : Patient appears to be at his baseline stability and will be discharging back to [facility] Jun. 11.
[2023-06-25 07:00] VITALS: RESP 16; O2SAT 97
[2023-06-25 07:17] VITALS: BP 101/57; PULSE 82; RESP 12; TEMP 97.3; O2SAT 98
[2023-06-25] MEDS: quetiapine 100mg tablet PO SCH ×3 (07:48→20:29)
[2023-06-25] MEDS: nicotine 21mg patch - 24 hr TD SCH (07:49)
[2023-06-25] MEDS: diphenhydrAMINE 25mg capsule PO PRN (14:07)
--- NOTE | 2023-06-25 17:46 | NUR ---
Nursing Progress Note: Problem : Pt admitted to [place] for [facility] health on 5149 for DTS/GD. Per 0 patient was making paranoid and delusional statements, having hallucinations, not eating or sleeping, and has voices telling him to kill himself. Pt. currently VOL. Interventions: Maintained a safe and supportive environment, provided clear and simple instructions, attempted to orient to reality, provided active listening and positive encouragement, provided active listening and positive encouragement, and maintained Q 15min safety checks. Response: Patient woke for breakfast and came to the community room to eat with his peers and receive AM meds. He no longer isolates to his room and can be found socializing in the halls or community room. He has been going to groupsmostly [employer], but its a group and he likes candy. Patient denies all MH symptoms, and none were observed. He continues to be calm, pleasant and cooperative. Patient keeps himself clean, dressed nicely, and he has grown a reveles that is trimmed and well groomed. He will discharge back to [facility] on Tuesday. Plan : Patient appears to be at his baseline stability and will be discharging back to [facility] .
[2023-06-25 19:00] VITALS: RESP 15; O2SAT 99
[2023-06-25 20:00] VITALS: BP 112/67; PULSE 88; RESP 15; TEMP 98.8; O2SAT 99
[2023-06-25] MEDS: clonazePAM 1mg tablet PO SCH (20:29)
--- NOTE | 2023-06-26 03:56 | NUR ---
RN PROGRESS NOTE: LEGAL HOLD: Voluntary PROBLEM: Admitted for making delusional statements, not eating or sleeping, and hearing voices telling him to kill himself. Hx: Schizophrenia, paranoia. INTERVENTIONS: Maintained a safe and supportive environment, provided clear and simple instructions, attempted to orient to reality, provided active listening and positive encouragement, provided active listening and positive encouragement, and maintained Q 15min safety checks. RESPONSE: Client is discharging 06/27/2023. His mood is stable at this time. He took his PM meds and requested a shower. Client did not make delusional statements this shift. He was pleasant and cooperative. Nicotine patch was removed. PLAN: Discharging 06/27/2023.
[2023-06-26 07:00] VITALS: RESP 18; O2SAT 99
[2023-06-26] MEDS: nicotine 21mg patch - 24 hr TD SCH (07:31)
[2023-06-26] MEDS: quetiapine 100mg tablet PO SCH ×4 (07:31→20:46)
[2023-06-26 08:00] VITALS: BP 90/64; PULSE 83; RESP 18; TEMP 97.7; O2SAT 99
--- NOTE | 2023-06-26 09:13 | NUR ---
F/u 06/26: Pt PO 100% regular diet w/ double protein TID per order. LBM 06/25 per EMR. No nutrition interventions at this time. Will continue to follow. Recommendations: 1) Continue regular diet; double protein with meals per diet order 2) Bowel care PRN; monitor need for routine bowel care 3) Weekly scaled weights Addendum: 06/26/23 at [address] Amended: Links added.
[2023-06-26 09:28] VITALS: BP 105/61; PULSE 96
[2023-06-26] MEDS: diphenhydrAMINE 25mg capsule PO PRN (10:02)
--- NOTE | 2023-06-26 15:58 | NUR ---
Nursing Progress Note: Lexa Problem : Pt admitted to [facility] on 5150 for DTS/GD. Per 5150 patient was making paranoid and delusional statements, having hallucinations, not eating or sleeping, and has voices telling him to kill himself. Pt. currently VOL. Interventions: Maintained a safe and supportive environment, provided clear and simple instructions, attempted to orient to reality, provided active listening and positive encouragement, provided active listening and positive encouragement, and maintained Q 15min safety checks. Response: Received pt asleep. Pt ate breakfast in the community room and took morning meds cooperatively. Performed 1:1 bedside. Pt denies SI/HI and VH. Pt endorses audio hallucinations stating that they talk down to him. Pt observed interacting with peers in the community room and listening to headphones in room while looking out of the window. Pt calm and cooperative with staff. Pt appearance is well groomed. Pt requested PRN Benadryl for allergies. Pt participated in snacks. Pt gave this RN a drawing today. Plan : Patient appears to be at his baseline stability and will be discharging back to [facility] Jun. 11.
[2023-06-26 19:00] VITALS: BP 106/61; PULSE 97; RESP 17; TEMP 98.3; O2SAT 100
[2023-06-26] MEDS: clonazePAM 1mg tablet PO SCH (20:46)
--- NOTE | 2023-06-26 23:53 | NUR ---
RN PROGRESS NOTE: LEGAL HOLD: Voluntary PROBLEM: Admitted for making delusional statements, not eating or sleeping, and hearing voices telling him to kill himself. Hx: Schizophrenia, paranoia. INTERVENTIONS: Maintained a safe and supportive environment, provided clear and simple instructions, attempted to orient to reality, provided active listening and positive encouragement, provided active listening and positive encouragement, and maintained Q 15min safety checks. RESPONSE: Client is discharging tomorrow. He stated he plans to "Keep exercising, taking care of myself, and get a job." His mood is stable at this time. He took his PM meds and had snack. Nicotine patch was removed. PLAN: Discharging 06/27/2023.
[2023-06-27 07:00] VITALS: RESP 18; O2SAT 100
[2023-06-27] MEDS: quetiapine 100mg tablet PO SCH (07:43)
[2023-06-27] MEDS: nicotine 21mg patch - 24 hr TD SCH (07:44)
[2023-06-27 08:00] VITALS: BP 117/77; PULSE 70; RESP 18; TEMP 97; O2SAT 100
--- NOTE | 2023-06-27 09:03 | NUR ---
DISCHARGE NOTE: Pt discharged to [facility], picked up by [facility] emt driver. Pt. discharged with all belongings and valuables. RN went over DC paperwork with pt. including firearms restriction, emergency phone numbers, and discharge medications along with f/u plan. Pt. signed all paperwork. Pt denies SI/HI and VH. Pt endorses hearing voices talking down to him. Pt is A&O X4 and in no apparent distress.
== END 2023-06-27 09:05 | disposition home or self-care (01) | DRG 750 ==
LOC: ER 17:45 → ADULT MH 06-11 13:06 → ED HOLD 06-11 14:29 → ADULT MH 06-11 15:39
PROVIDERS: ADMIT Psychiatry & Neurology Psychiatry; ATTEND Psychiatry & Neurology Psychiatry
DX: F20.9 Schizophrenia, unspecified (principal); F29 Unspecified psychosis not due to a substance or known physiological condition; R45.851 Suicidal ideations; Z20.822 Contact with and (suspected) exposure to COVID-19; J44.9 Chronic obstructive pulmonary disease, unspecified; F19.10 Other psychoactive substance abuse, uncomplicated; Z79.899 Other long term (current) drug therapy
CPT/HCPCS: 36415; 80053; 80305; 80320; 81003; 84443; 85025; 86703; 87081; 87811; 99285; A6250; C2617; Q0163; Q0177